=== PATIENT | male | born 1980 | race Native Hawaiian/Other Pacific Islander ===

== ENCOUNTER 2019-11-19 16:48 | Emergency (ER) | payer BC ==
[~2019-11-19] VITALS: Ht 182.9 cm; Wt 113.4 kg
[2019-11-19 18:02] VITALS: BP 123/86; TEMP 98.5
== END 2019-11-19 18:03 | disposition home or self-care (01) ==
LOC: ED 16:48
PROC: 0HQGXZZ Repair Left Hand Skin, External Approach (ICD-10-PCS; principal; 2019-11-19)
DX: S61.422A Laceration with foreign body of left hand, initial encounter (principal); W26.8XXA Contact with other sharp object(s), not elsewhere classified, initial encounter; W45.8XXA Other foreign body or object entering through skin, initial encounter; Y92.89 Other specified places as the place of occurrence of the external cause
CPT/HCPCS: 36415; 90471; 99283; J7040